=== PATIENT | male | born 1990 | race American Indian/Alaskan Native ===

== ENCOUNTER 2019-02-25 12:58 | Emergency (ER) | payer SELFPAY ==
[2019-02-25 13:06] VITALS: BP 141/75
--- NOTE | 2019-02-25 13:07 | Event Note ---
ED Screening Note ED Screening Note: pt presents with left sided chest pain x 1 week sharp, worse with certain movements has been laying on the other side feels like it is more swollen works as a warehouse assembly worker and lifts heavy no SOB, no N/V, no diaphoresis PMHx: hernia +tobacco use This initial assessment/diagnostic orders/clinical plan/treatment(s) is/are subject to change based on patients health status, clinical progression and re- assessment by fellow clinical providers in the ED. Further treatment and workup at subsequent clinical providers discretion. Patient/guardian urged not to elope from the ED as their condition may be serious if not clinically assessed and managed. Initial orders include: XR of the chest, EKG
--- NOTE | 2019-02-25 13:45 | XRay Report ---
CHEST 2 VIEWS INDICATION: Chest pain. COMPARISON: None FINDINGS: Support devices: None. Heart: Within normal limits. Lungs/pleura: No acute air space or interstitial disease. No pneumothorax. Additional findings: None. IMPRESSION: No acute findings. Signer Name: Monty Lange Jr, MD Signed: 02/25/2019 1:41 PM Workstation Name: [id number]
[2019-02-25] MEDS ORDERED: FLEXERIL PO ONE (14:22)
[2019-02-25] MEDS ORDERED: IBUPROFEN PO ONE (14:22)
--- NOTE | 2019-02-25 14:27 | Emergency Department Report ---
ED General Adult HPI - General Chief complaint: Chest Pain Stated complaint: CHEST PAIN/POSS HERNIA Time Seen by Provider: 02/25/19 13:05 Source: patient Mode of arrival: Ambulatory Limitations: No Limitations - History of Present Illness Initial comments: This is a 28-year-old male who presents to the ED complaining of left-sided chest pain that started a week ago. Patient states he does not a heavy lifting at his job anything he may have strained chest muscle but he was also scared that he could be his heart rate came into evaluated. Patient states he has no medical condition is usually never sick. Patient states his pretty healthy other than stress at work. He denies shortness of breath, fever, chills, nausea vomiting or abdominal pain - Related Data Previous Rx's Medication Instructions Recorded Last Taken Type Cyclobenzaprine [Flexeril 10 MG 10 mg PO QHS #15 tablet 02/25/19 Unknown Rx TAB] Ibuprofen [Motrin 800 MG tab] 800 mg PO TID #20 tablet 02/25/19 Unknown Rx Allergies Allergy/AdvReac Type Severity Reaction Status Date / Time No Known Allergies Allergy Unverified 02/25/19 12:59 ED Review of Systems ROS: Stated complaint: CHEST PAIN/POSS HERNIA Other details as noted in HPI Comment: All other systems reviewed and negative ED Past Medical Hx - Past Medical History Previous Medical History?: No - Surgical History Additional Surgical History: hernia - Social History Smoking Status: Current Every Day Smoker Substance Use Type: Alcohol, Marijuana - Medications Home Medications: Home Medications Medication Instructions Recorded Confirmed Last Taken Type Cyclobenzaprine [Flexeril 10 MG 10 mg PO QHS #15 tablet 02/25/19 Unknown Rx TAB] Ibuprofen [Motrin 800 MG tab] 800 mg PO TID #20 tablet 02/25/19 Unknown Rx ED Physical Exam - General Limitations: No Limitations General appearance: alert, in no apparent distress - Head Head exam: Present: atraumatic, normocephalic - Eye Eye exam: Present: normal appearance - ENT ENT exam: Present: mucous membranes moist - Neck Neck exam: Present: normal inspection - Respiratory Respiratory exam: Present: normal lung sounds bilaterally. Absent: respiratory distress, chest wall tenderness, accessory muscle use - Cardiovascular Cardiovascular Exam: Present: regular rate, normal rhythm. Absent: systolic murmur, diastolic murmur, rubs, gallop - GI/Abdominal GI/Abdominal exam: Present: soft, normal bowel sounds - Rectal Rectal exam: Present: deferred - Extremities Exam Extremities exam: Present: normal inspection - Back Exam Back exam: Present: normal inspection - Neurological Exam Neurological exam: Present: alert, oriented X3 - Psychiatric Psychiatric exam: Present: normal affect, normal mood - Skin Skin exam: Present: warm, dry, intact, normal color. Absent: rash ED Course Vital Signs 02/25/19 13:05 Temperature 98.6 F Pulse Rate 75 Respiratory 18 Rate Blood Pressure 141/75 O2 Sat by Pulse 100 Oximetry ED Medical Decision Making - EKG Data EKG shows normal: sinus rhythm Rate: normal - Radiology Data Radiology results: report reviewed, image reviewed CHEST 2 VIEWS INDICATION: Chest pain. COMPARISON: None FINDINGS: Support devices: None. Heart: Within normal limits. Lungs/pleura: No acute air space or interstitial disease. No pneumothorax. Additional findings: None. IMPRESSION: No acute findings. Signer Name: Monty Rojas Jr, MD Signed: 02/25/2019 1:41 PM Workstation Name: [id number] Transcribed By: TTR Dictated By: MONTY ROJAS JR, MD Electronically Authenticated By: MONTY ROJAS JR, MD Signed Date/Time: 02/25/19 1341 - Medical Decision Making 28-year-old male presents left side chest wall muscle pain/spasm. EKG shows non-the malaise x-ray shows no abnormalities reported above Patient states he needs a referral for surgeon for his hernia which he had placed some years ago X line vital signs are normal patient is in no acute distress. Patient is resting comfortably in the ED bed. Examination shows no acute findings. Discussed the patient for a practice proper heavy lifting. Vital signs are normal patient has no neurologic deficit Discussed follow-up with primary care physician. Critical care attestation.: If time is entered above; I have spent that time in minutes in the direct care of this critically ill patient, excluding procedure time. ED Disposition Clinical Impression: Acute chest wall pain Disposition: DC-01 TO HOME OR SELFCARE Is pt being admited?: No Does the pt Need Aspirin: No Condition: Stable Instructions: Chest Pain (ED), Costochondritis (ED) Additional Instructions: Make sure to follow up with the primary care physician as discussed. Take all your medications as you've been prescribed. If you have any worsening symptoms or develop new symptoms please return to ED immediately. Prescriptions: Cyclobenzaprine [Flexeril 10 MG TAB] 10 mg PO QHS #15 tablet Ibuprofen [Motrin 800 MG tab] 800 mg PO TID #20 tablet Referrals: JAVIER HERNANDEZ MD [Referring] - 3-5 Days [facility] [Provider Group] - 3-5 Days Forms: Accompanied Note, Work/School Release Form(ED) Time of Disposition: 14:32
== END 2019-02-25 14:55 | disposition home or self-care (01) ==
LOC: ED 12:58
DX: R07.89 Other chest pain (principal); F17.200 Nicotine dependence, unspecified, uncomplicated; F12.10 Cannabis abuse, uncomplicated; Z79.899 Other long term (current) drug therapy
CPT/HCPCS: 71046; 93005; 93010

== ENCOUNTER 2019-04-13 20:24 | Emergency (ER) | payer OTHER ==
--- NOTE | 2019-04-13 20:44 | Emergency Department Report ---
Blank Doc - Documentation Documentation: 28-year-old male that presents with left flank pain. This initial assessment/diagnostic orders/clinical plan/treatment(s) is/are subject to change based on patient's health status, clinical progression and re- assessment by fellow clinical providers in the ED. Further treatment and workup at subsequent clinical providers discretion. Patient/guardians urged not to elope from the ED as their condition may be serious if not clinically assessed and managed. Initial orders include: 1- Patient sent to [facility] for further evaluation and treatment 2- [facility]
[2019-04-13 20:45] VITALS: BP 128/79
[2019-04-13] MEDS ORDERED: ACETAMINOPHEN 500 MG TAB PO ONE (22:36)
[2019-04-13] MEDS ORDERED: KETOROLAC 30 MG/1 ML INJ IM ONE (22:36)
[2019-04-13] MEDS ORDERED: ONDANSETRON 4 MG ODT TAB PO ONE (22:37)
[2019-04-13] MEDS ORDERED: IBUPROFEN 600 MG TAB PO ONE (22:37)
--- NOTE | 2019-04-13 23:06 | Emergency Department Report ---
ED Back Pain/Injury HPI - General Chief Complaint: Back Pain/Injury Stated Complaint: LEFT SIDE PAIN/BACK Time Seen by Provider: 04/13/19 20:43 Source: patient Limitations: No Limitations - History of Present Illness Initial Comments: Patient is a 28-year-old -[place] male with no past medical history who presents to the ED with complaint of acute onset persistent severe nontraumatic low back pain for the last 12 hours. Patient states that he woke up and started to clean the house when he suddenly experiencing sharp low back pain which has not improved. Patient states that he has not taken and pain medications at home. Patient denies fall, traumatic injury, heavy lifting, hematuria, dysuria, testicular pain, fever, chills, cough, chest pain, shortness of breath, numbness and tingling of lower extremities bilaterally, saddle paresthesia, dizziness, urinary or bowel incontinence. MD Complaint: back pain -: Sudden, hour(s) (12) Similar Symptoms Previously: No Place: home Radiation: none Severity scale (0 -10): 7 Quality: sharp, aching Consistency: constant Improves With: none Worsens With: movement, walking Context: while lifting, turning/twisting, bending Associated Symptoms: denies other symptoms. denies: confusion, weakness, chest pain, numbness, difficulty walking, cough, difficulty urinating, diaphoresis, incontinence, fever/chills, headaches, loss of appetite, malaise, nausea/vomiting, rash, seizure, shortness of breath, syncope - Related Data Previous Rx's Medication Instructions Recorded Last Taken Type Cyclobenzaprine [Flexeril 10 MG 10 mg PO QHS #15 tablet 02/25/19 Unknown Rx TAB] Ibuprofen [Motrin 800 MG tab] 800 mg PO TID #20 tablet 02/25/19 Unknown Rx Cyclobenzaprine [Flexeril] 10 mg PO Q8H PRN #24 tablet 04/13/19 Unknown Rx Ibuprofen [Motrin] 800 mg PO Q8HR PRN #24 tablet 04/13/19 Unknown Rx Allergies Allergy/AdvReac Type Severity Reaction Status Date / Time No Known Allergies Allergy Verified 04/13/19 20:27 ED Review of Systems ROS: Stated complaint: LEFT SIDE PAIN/BACK Other details as noted in HPI Constitutional: denies: chills, fever Eyes: denies: eye pain, eye discharge, vision change ENT: denies: ear pain, throat pain Respiratory: denies: cough, shortness of breath, wheezing Cardiovascular: denies: chest pain, palpitations Endocrine: no symptoms reported Gastrointestinal: denies: abdominal pain, nausea, diarrhea Genitourinary: denies: urgency, dysuria Musculoskeletal: back pain, arthralgia. denies: joint swelling Skin: denies: rash, lesions Neurological: denies: headache, weakness, paresthesias Psychiatric: denies: anxiety, depression Hematological/Lymphatic: denies: easy bleeding, easy bruising ED Past Medical Hx - Past Medical History Previous Medical History?: No - Surgical History Past Surgical History?: Yes Additional Surgical History: hernia - Social History Smoking Status: Current Every Day Smoker Substance Use Type: Marijuana - Medications Home Medications: Home Medications Medication Instructions Recorded Confirmed Last Taken Type Cyclobenzaprine [Flexeril 10 MG 10 mg PO QHS #15 tablet 02/25/19 Unknown Rx TAB] Ibuprofen [Motrin 800 MG tab] 800 mg PO TID #20 tablet 02/25/19 Unknown Rx Cyclobenzaprine [Flexeril] 10 mg PO Q8H PRN #24 tablet 04/13/19 Unknown Rx Ibuprofen [Motrin] 800 mg PO Q8HR PRN #24 tablet 04/13/19 Unknown Rx ED Physical Exam - General Limitations: No Limitations General appearance: alert, in no apparent distress - Head Head exam: Present: atraumatic, normocephalic, normal inspection - Eye Eye exam: Present: normal appearance, PERRL, EOMI Pupils: Present: normal accommodation - ENT ENT exam: Present: normal exam, normal orophraynx, mucous membranes moist, TM's normal bilaterally, normal external ear exam - Neck Neck exam: Present: normal inspection, full ROM - Respiratory Respiratory exam: Present: normal lung sounds bilaterally. Absent: respiratory distress, wheezes, rales, rhonchi, chest wall tenderness, accessory muscle use, prolonged expiratory - Cardiovascular Cardiovascular Exam: Present: regular rate, normal rhythm, normal heart sounds. Absent: systolic murmur, diastolic murmur, rubs, gallop - GI/Abdominal GI/Abdominal exam: Present: soft, normal bowel sounds. Absent: distended, tenderness, guarding, hyperactive bowel sounds, hypoactive bowel sounds - Rectal Rectal exam: Present: deferred - Extremities Exam Extremities exam: Present: normal inspection, full ROM, normal capillary refill - Back Exam Back exam: Present: normal inspection, tenderness (palpable lumbosacral paraspinal musculoskeletal tenderness), muscle spasm, paraspinal tenderness - Neurological Exam Neurological exam: Present: alert, oriented X3, CN II-XII intact, normal gait, reflexes normal - Psychiatric Psychiatric exam: Present: normal affect, normal mood - Skin Skin exam: Present: warm, dry, intact, normal color. Absent: rash ED Course Vital Signs 04/13/19 04/13/19 04/13/19 20:30 20:43 22:52 Temperature 97.9 F 97.9 F Pulse Rate 63 63 Respiratory 12 16 20 Rate Blood Pressure 128/75 128/79 O2 Sat by Pulse 97 100 Oximetry 04/13/19 22:53 Temperature Pulse Rate Respiratory 20 Rate Blood Pressure O2 Sat by Pulse Oximetry - Reevaluation(s) Reevaluation #1: 04/13/19 23:07 This is a 28-year-old male who presented to the ED with nontraumatic low back pain for the last 12 hours. In the ED, patient is alert and oriented 3 and is not in distress. This of the physical exam findings, patient's symptoms are likely due to muscular skeletal spasm. Patient is hemodynamically stable. Patient was treated for pain in the ED and discharged home on muscle relaxants and pain medications. Patient was advised to return to the ED immediately if symptoms get worse. Patient was otherwise advised follow-up with his primary care physician in 7-10 days for reevaluation. ED Medical Decision Making - Medical Decision Making This is a 28-year-old male who presented to the ED with nontraumatic low back p ain for the last 12 hours. In the ED, patient is alert and oriented 3 and is not in distress. This of the physical exam findings, patient's symptoms are likely due to muscular skeletal spasm. Patient is hemodynamically stable. Patient was treated for pain in the ED and discharged home on muscle relaxants and pain medications. Patient was advised to return to the ED immediately if symptoms get worse. Patient was otherwise advised follow-up with his primary care physician in 7-10 days for reevaluation. - Differential Diagnosis muscle spasm; muscle strain Critical care attestation.: If time is entered above; I have spent that time in minutes in the direct care of this critically ill patient, excluding procedure time. ED Disposition Clinical Impression: Spasm of muscle of lower back Acute low back pain Qualifiers: Back pain laterality: unspecified Sciatica presence: without sciatica Qualified Code(s): M54.5 - Low back pain Disposition: TO HOME OR SELFCARE Is pt being admited?: No Does the pt Need Aspirin: No Condition: Stable Instructions: Muscle Spasm (ED), Musculoskeletal Pain (ED), Muscle Strain (ED), Acute Low Back Pain (ED) Additional Instructions: Take medication with food, drink plenty of fluids and follow-up with your primary care physician in 7-10 days for reevaluation. Return to the ED immediately if symptoms get worse. Prescriptions: Cyclobenzaprine [Flexeril] 10 mg PO Q8H PRN #24 tablet PRN Reason: Muscle Spasm Ibuprofen [Motrin] 800 mg PO Q8HR PRN #24 tablet PRN Reason: Pain , Severe (7-10) Referrals: PRIMARY CARE, [Primary Care Provider] - 3-5 Days Forms: Work/School Release Form(ED) Time of Disposition: 23:04 Print Language: BARBADIAN
== END 2019-04-14 00:16 | disposition home or self-care (01) ==
LOC: ED 20:24
DX: M62.830 Muscle spasm of back (principal); F17.200 Nicotine dependence, unspecified, uncomplicated; F12.10 Cannabis abuse, uncomplicated; Z87.19 Personal history of other diseases of the digestive system; Z79.899 Other long term (current) drug therapy
CPT/HCPCS: Q0162